=== PATIENT | male | born 1995 | race Caucasian/White ===

== ENCOUNTER 2020-12-29 16:09 | Emergency (ER) | payer OTHER, SELFPAY ==
[2020-12-29 16:22] VITALS: BP 111/79; PULSE 98; RESP 18; TEMP 37.3; O2SAT 96; BMI 36.6
--- NOTE | 2020-12-29 18:39 | ED.GENADULT ---
HPI - General Adult General Chief complaint: General Medical Stated complaint: Multiple Complaints Time Seen by Provider: 12/29/20 18:39 History of Present Illness HPI narrative: Patient with 2 complaints, 1st complaint is cavities that are starting to hurt and he does not have a dental appointment in the near future and is thinking antibiotics might help, denies any difficulty breathing or swallowing or fever Second complaint is a rash on his foreskin that is mildly itchy, denies any discharge no dysuria no pain Related Data Previous Rx's Medication Instructions Recorded penicillin V potassium 500 mg PO QID 7 Days #28 tab 12/29/20 triamcinolone acetonide 1 appl TOPICAL BID PRN #15 g 12/29/20 Allergies Allergy/AdvReac Type Severity Reaction Status Date / Time pollen extracts [POLLEN] Allergy Unknown ITCHY Unverified 07/20/20 19:00 EYES, SNEEZING DUST Allergy Unknown ITCHY Uncoded 07/20/20 19:00 EYES, SNEEZING Review of Systems Review of Systems: Positives are penile rash and dental cavities Negatives are no fever no chills no dizziness no weakness no trouble breathing no trouble swallowing no shortness of breath, no pain, no sore throat, no abdominal pain no nausea no vomiting no testicular pain no discharge no dysuria PMFSH Social History Social History Advance Directives: No Advance Directives Information Provided: Yes Physical Exam Vital Signs: Vital Signs: Last Vital Signs Temp 99.1 F 12/29/20 16:22 Pulse 98 12/29/20 16:22 Resp 18 12/29/20 16:22 BP 111/79 12/29/20 16:22 Pulse Ox 96 12/29/20 16:22 Body Mass Index 36.6 General appearance is no acute distress, comfortable relaxed and cooperative The dental exam there are multiple dental caries, no trismus, uvula is midline, well hydrated, no abscess on the gums no fluctuant area no redness of the gums, voice is normal Neck is supple Abdomen is soft nontender Genital exam there is a scant red rash on the foreskin, no vesicular rash no herpetic lesions no ulcerations no discharge, rash has appearance of a dermatitis Extremities full range of motion x4 Neuro no focal deficits Course Course Course Narrative: Patient is treated for mild dental infection and a dermatitis Discharge Plan Discharge Clinical Impression: Dental caries, Rash, skin Patient Disposition: Home, Self-Care Additional Instructions: Penicillin for possible dental infection, use as directed Use cream as directed for dermatitis Follow with dentist for teeth Return any concerns Prescriptions: New penicillin V potassium 500 mg tablet 500 mg PO QID 7 Days Qty: 28 RF: 0 triamcinolone acetonide 0.1 % cream 1 appl topical BID PRN (Reason: rash) Qty: 15 RF: 0 Interventions: ED Discharge Assessment Last Done: 12/29/20 19:54 Discharge Date/Time: 12/29/20 19:54
== END 2020-12-29 19:54 | disposition home or self-care (01) ==
PROVIDERS: Emergency Provider Emergency Medicine; PCP Pediatrics
DX: K02.9 Dental caries, unspecified (principal); K08.89 Other specified disorders of teeth and supporting structures; R21 Rash and other nonspecific skin eruption
CPT/HCPCS: 99283

== ENCOUNTER 2024-06-17 12:50 | Emergency (ER) | payer OTHER, SELFPAY ==
[2024-06-17 13:19] VITALS: BP 111/74; PULSE 77; RESP 16; TEMP 36.3; O2SAT 97; BMI 31.1
--- NOTE | 2024-06-17 13:19 | ED.GENADULT ---
HPI - General Adult General Chief complaint: General Medical Stated complaint: hemorrhoid Time Seen by Provider: 06/17/24 14:44 Source: patient Mode of arrival: ambulatory Limitations: no limitations History of Present Illness HPI narrative: 28-year-old male with no significant past medical history who presents emergency department with concerns for rectal pain and swelling starting on Friday. He reports he noted a hemorrhoid which isn't increased in size since Friday. He reports he has had significant discomfort with sitting. He denies noting any rectal bleeding or blood after bowel movements. He reports he has been using [id number] hemorrhoid ointment with no relief in symptoms. States he last moved his bowels on Friday and that he typically has difficulty passing stools but denies known constipation. Denies any foreign bodies inserted into the rectum, pain with bowel movements although he states he has not had a bowel movement since prior to Friday, fever, chills, or discharge from the rectum. Pertinent positives and negatives discussed in HPI Related Data Previous Rx's ?Medication ?Instructions ?Recorded penicillin V potassium 500 mg 500 mg PO QID 7 days #28 tabs 12/29/20 tablet triamcinolone acetonide 0.1 % 1 appl topical BID PRN rash #15 12/29/20 topical cream grams dibucaine 1 % rectal ointment 1 appl IN QID PRN hemorrhoids #56 06/17/24 grams psyllium husk 0.52 gram capsule 1.04 g (2 x 0.52 gram) PO DAILY 06/17/24 (Fiber Laxative (psyllium husk)) #10 caps sitz bath #2 ea 06/17/24 Allergies Allergy/AdvReac Type Severity Reaction Status Date / Time pollen extracts [POLLEN] Allergy Unknown ITCHY Verified 06/17/24 13:21 EYES, SNEEZING DUST Allergy Unknown ITCHY Uncoded 07/20/20 19:00 EYES, SNEEZING Review of Systems Review of Systems: Yes all other systems are reviewed and are negative PMFSH Social History Social History Advance Directives: No Advance Directives Information Provided: No Physical Exam ED Vital Signs: Vital Signs - 24 hr 06/17/24 13:19 06/17/24 15:40 Temperature 97.3 F 98.4 F Pulse Rate 77 80 Respiratory Rate 16 18 Blood Pressure 111/74 115/74 Pulse Oximetry 97 96 Oxygen Delivery Method Room Air Room Air BMI result Body Mass Index 31.1 Nursing notes and vital signs reviewed. GENERAL APPEARANCE: A&0 x 4, generally well appearing, no acute distress HENMT: Normal to inspection, atraumatic, face symmetrical. Normal external ears, nose, and oropharynx clear. EYE: PERRLA, EOM intact, structures appear normal NECK: Supple without stiffness or restricted ROM. HEART: Normal rate and regular rhythm, normal S1/S2, no M/R/G LUNGS: LS CTA, moving air well. Able to speak in complete sentences. No crackles, wheezes, or rhonchi auscultated BACK: No CVAT, no obvious deformity EXTREMITIES: Moving all extremities without difficulty. Normal capillary refill. NEUROLOGICAL: Alert and oriented, moving all 4 extremities with equal strength. CN not formally tested but appearing grossly intact. Observed to ambulate with normal gait. Cognition normal SKIN: Warm and dry without any lesions, rash, or visible sores Other: congressional assistant present. 2 cm round external hemorrhoid with no evidence of thrombosis. Course Course Course Narrative: This is a Rapid Medical Examination (RME) performed by Hal Lloyd PA-C in triage. Full HPI, ROS, assessment and treatment plan per primary provider in the Main ED. 28 yo male presenting to the ER for evaluation of large, painful hemorrhoid that is blocking the entrance to his anus and causing significant pain for the last 4 days. No relief with OTC cream. No rectal bleeding. Hx hemorrhoids in the past but not this severe per his report. Plan: examine in [facility] Medical Decision Making Medical Decision Making MDM Narrative: Old records reviewed for previous imaging, lab studies, ECGs, and notes. Patient was assessed the emergency department with no acute distress or toxicity noted. Exam showing external hemorrhoid. Patient educated to begin bulk laxative and increase his fluid intake to allow for more regular bowel movements it appears that he has chronic constipation. Topical lidocaine ointment also sent preferred pharmacy for further management of pain and patient educated that he may continue use of [id number] preparation H. patient educated to complete Sitz baths several times a day to aid in healing. Contact information for colorectal specialist provided for follow-up. Patient is safe for discharge at this time with plan for [id number] Tylenol and/or NSAID such as ibuprofen or naproxen for fever/discomfort with dosing as per packaging. HPI, PE, diagnostics, and plan discussed with patient and family with no unanswered questions at this time. Strict return precautions given to return to the emergency department with new, worsening, or concerning emergent symptoms. Recommended to follow-up with there primary care provider in 24-48 hours for further treatment and management. Differential Diagnosis Differential Diagnoses: The differential diagnosis associated with the presentation includes But not limited to hemorrhoids, fistula, rectal prolapse, pilonidal cyst, anorectal abscess, sepsis, malignancy Prescription Management Antibiotics were considered, however; no evidence of bacterial infection was identified at this time. Narcotic pain medication was considered, however; based on exam, side effects, and high-risk of addiction was deemed necessary at this time. Discharge Plan Discharge Clinical Impression: External hemorrhoid Patient Disposition: Home, Self-Care Instructions: Laxative, Bulk-forming (By mouth), Hemorrhoids (ED), Sitz Bath (DC) Prescriptions: New (DME) sitz bath Kit See Rx Instructions .Route Qty: 2 0RF Rx Instructions: As directed psyllium husk [Fiber Laxative (psyllium husk)] 0.52 gram capsule 1.04 g PO DAILY Qty: 10 0RF dibucaine 1 % ointment 1 appl IN QID PRN (Reason: hemorrhoids) Qty: 56 0RF No Action penicillin V potassium 500 mg tablet 500 mg PO QID 7 Days Qty: 28 0RF triamcinolone acetonide 0.1 % cream 1 appl topical BID PRN (Reason: rash) Qty: 15 0RF Referrals: Beny Gonzalez MD [Physician] - Blake Joy MD [Primary Care Provider] - Stand Alone Forms: Work/School Release Interventions: ED Discharge Assessment Last Done: 06/17/24 15:40 Discharge Date/Time: 06/17/24 15:42 Print Language: Sudanese
[2024-06-17 15:40] VITALS: BP 115/74; PULSE 80; RESP 18; TEMP 36.9; O2SAT 96
== END 2024-06-17 15:42 | disposition home or self-care (01) ==
PROVIDERS: Emergency Provider Emergency Medicine; PCP Pediatrics
DX: K64.4 Residual hemorrhoidal skin tags (principal); K62.89 Other specified diseases of anus and rectum
CPT/HCPCS: 99282; 99283

== ENCOUNTER 2025-01-27 13:22 | Emergency (ER) | payer OTHER, SELFPAY ==
--- NOTE | 2025-01-27 14:06 | ED_ITS ---
HPI - General Adult General Chief complaint: Dental/Oral Stated complaint: dental problem Source: patient, RN notes reviewed and old records reviewed Mode of arrival: ambulatory Limitations: no limitations History of Present Illness ED Provider: Anibal IRAHETA narrative: Patient is a 29-year-old male presenting to the ED with complaint of multiple areas of dental pain. States he does not have an appointment with his dentist for several months. Denies fevers, discharge, drainage. States left lower jaw is the most painful. No difficulty swallowing. MD complaint: dental pain Onset (ago): day(s) Location: mouth Treatments prior to arrival: NSAID Related Data Previous Rx's ?Medication ?Instructions ?Recorded penicillin V potassium 500 mg 500 mg PO QID 7 days #28 tabs 12/29/20 tablet triamcinolone acetonide 0.1 % 1 appl topical BID PRN rash #15 12/29/20 topical cream grams dibucaine 1 % rectal ointment 1 appl [place] QID PRN hemorrhoids #56 06/17/24 grams psyllium husk 0.52 gram capsule 1.04 g (2 x 0.52 gram) PO DAILY 06/17/24 (Fiber Laxative (psyllium husk)) #10 caps sitz bath #2 ea 06/17/24 amoxicillin 875 mg-potassium 1 tab PO BID #14 tabs 01/27/25 clavulanate 125 mg tablet Allergies Allergy/AdvReac Type Severity Reaction Status Date / Time pollen extracts [POLLEN] Allergy Unknown ITCHY Verified 01/27/25 14:09 EYES, SNEEZING DUST Allergy Unknown ITCHY Uncoded 07/20/20 19:00 EYES, SNEEZING Review of Systems 2 Review of Systems: As per HPI Yes all other systems are reviewed and are negative Constitutional: Constitutional: Reports as per HPI Physical Exam ED Vital Signs: Vital signs have been reviewed and appear to be correct. Blood pressure normal. Heart rate slightly tachycardic. Respiratory rate normal. Temperature normal. Oxygen saturation normal. Const General: cooperative, healthy appearing and no acute distress Orientation/consciousness: oriented to person, oriented to place, oriented to time and patient oriented x3 Limitations: no limitations HENMT Head: Yes normocephalic and Yes atraumatic Ears: external ears normal General nose exam: Normal external nose present Face and sinus: Yes face symmetric Mouth: Normal oral and palatal mucosa present, lip normal, tongue normal, oropharynx normal, moist mucous membranes, no audible dysphonia, no drooling and no trismus Teeth and gingiva: dentition normal Teeth image: 2 1. gingival erythema, edema surrounding tooth #17, no fluctuance or drainage Throat: Yes uvula midline and No uvular edema Eyes Pupils: Equal, round and reactive pupils present Neck Neck: Yes normal visual inspection, Yes no lymphadenopathy and Yes supple Resp Effort & Inspection: normal respiratory effort and able to speak in complete sentences Auscultation: clear to auscultation bilaterally Cardio Rate: regular rate Rhythm: regular rhythm Heart sounds: S1 normal heart sound present and S2 normal heart sound present GI Palpation (GI): Soft to palpation and nontender Auscultation: normoactive bowel sounds General: Yes no CVA tenderness Back/Spine/Pelvis Back: no CVA tenderness Skin General skin exam: elasticity normal and turgor normal Neuro General: oriented to person, oriented to place, oriented to time, patient oriented x3, moves all extremities, no focal motor deficits and CN's II-XI intact bilaterally Cranial nerves: Yes Equal, round and reactive pupils present Cognition (Neuro): normal cognition Extrem General: Yes full ROM, Yes no pedal edema and Yes no calf tenderness Psych Mental Status: mental status grossly normal Affect: normal affect Thought process: Normal thought process present Medical Decision Making Medical Decision Making [facility] Narrative: Patient is a 29-year-old male presenting to the ED with complaint of multiple areas of dental pain. On exam patient is awake, A+Ox3, mild tachycardia, VS otherwise WNL, afebrile, normal neurological exam without focal deficits, physical exam findings as above. Given reported symptoms and physical exam findings, initial differential includes but is not limited to toothache, dental infection, dental abscess. Will treat with course of Augmentin. Will provide patient with list of dental clinics to try to get seen sooner. Return precautions discussed. Patient verbalized understanding of and agreement with plan. Differential Diagnosis Differential Diagnoses: The differential diagnosis associated with the presentation includes As per MDM External Record Review External record reviewed: Inpatient record, Office record and Outpatient record Prescription Management I considered prescription management with: Antibiotic Discharge Plan Discharge Clinical Impression: Dental infection Patient Disposition: Home, Self-Care Instructions: Toothache (ED) Additional Instructions: You were evaluated in the emergency department today for complaint of dental pain. You are being treated for a dental infection with antibiotics. Please complete the full course of antibiotics as prescribed even if your symptoms improve. IT IS IMPORTANT THAT YOU FOLLOW UP WITH YOUR DENTIST. We recommend that you take 600 mg of ibuprofen or 650 mg Tylenol every 6 hours as needed for pain. If necessary, you can alternate these medications every 3 hours. For example, at 9:00 a.m. take Tylenol, then at noon take ibuprofen, then at 3:00 p.m. take Tylenol, etc.. Return to the emergency department if you develop worsening pain, swelling, difficulty swallowing, difficulty breathing, fever, or any other concerning symptoms. Call or visit any of the clinics below to establish care with a dentist: [facility] [address] [place] [address] [facility] [place] [address] [facility], [address] [address] [facility] [address] [place] [id number] [facility] [address] [place] [address] [address] [place] [address] Prescriptions: New amoxicillin-pot clavulanate 875-125 mg tablet 1 tab PO BID Qty: 14 0RF No Action penicillin V potassium 500 mg tablet 500 mg PO QID 7 Days Qty: 28 0RF triamcinolone acetonide 0.1 % cream 1 appl topical BID PRN (Reason: rash) Qty: 15 0RF (DME) sitz bath Kit See Rx Instructions .Route Qty: 2 0RF Rx Instructions: As directed psyllium husk [Fiber Laxative (psyllium husk)] 0.52 gram capsule 1.04 g PO DAILY Qty: 10 0RF dibucaine 1 % ointment 1 appl [place] QID PRN (Reason: hemorrhoids) Qty: 56 0RF Print Language: Latvian
[2025-01-27 14:07] VITALS: BP 113/75; PULSE 112; RESP 16; TEMP 36.9; O2SAT 96; BMI 32.9
[2025-01-27 14:14] VITALS: BP 113/75; PULSE 112; RESP 16; TEMP 36.9; O2SAT 96
== END 2025-01-27 14:18 | disposition home or self-care (01) ==
PROVIDERS: Emergency Provider Emergency Medicine; PCP Pediatrics
DX: K04.7 Periapical abscess without sinus (principal); K08.89 Other specified disorders of teeth and supporting structures; R00.0 Tachycardia, unspecified
CPT/HCPCS: 99282; 99283

== ENCOUNTER 2025-04-17 14:03 | Emergency (ER) | payer OTHER, SELFPAY ==
--- NOTE | ~2025-04-17 | XR_ITS ---
CLINICAL HISTORY: cough post viral infection, r o PNA 2 view chest x-ray Comparison: None Findings: No consolidation or effusion. Heart size is normal. No acute fracture. IMPRESSION: 1. No acute findings. This document has been electronically signed by: Kristina Trevino MD on 04/17/2025 15:24:33
[2025-04-17 14:06] VITALS: BP 99/64; PULSE 106; RESP 18; TEMP 36.7; O2SAT 100; BMI 32.3
--- NOTE | 2025-04-17 14:07 | ED.URI ---
HPI - URI/Sore Throat General Chief Complaint: Upper Respiratory Symptoms Stated Complaint: cough Time Seen by Provider: 04/17/25 14:38 Source: patient and RN notes reviewed Mode of arrival: ambulatory Limitations: no limitations History of Present Illness ED Provider: Maya Torres PA-C HPI Narrative: This is a 29-year-old male, with no known medical problems, who presents emergency department with complaints of productive cough for the last 10 days. Patient states that approximately 10 days ago he had subjective fevers, body aches, congestion which have all resolved however states he continues to have a productive cough with green-colored sputum. He states that his mom was sick with similar symptoms. He has been using [id number] cold medications which has not been helping. He denies any new fevers, chills, chest pain, shortness of breath, abdominal pain, nausea, vomiting or diarrhea. No urinary symptoms. No other complaints or concerns at this time. MD elicited complaint: cough Onset (ago): day(s) Consistency: constant Severity: moderate Able to tolerate fluids by mouth: Yes Exacerbating factors: nothing Relieving factors: nothing Context: sick contacts Associated symptoms: denies other symptoms Treatments prior to arrival: none Related Data Previous Rx's ?Medication ?Instructions ?Recorded penicillin V potassium 500 mg 500 mg PO QID 7 days #28 tabs 12/29/20 tablet triamcinolone acetonide 0.1 % 1 appl topical BID PRN rash #15 12/29/20 topical cream grams dibucaine 1 % rectal ointment 1 appl WV QID PRN hemorrhoids #56 06/17/24 grams psyllium husk 0.52 gram capsule 1.04 g (2 x 0.52 gram) PO DAILY 06/17/24 (Fiber Laxative (psyllium husk)) #10 caps sitz bath #2 ea 06/17/24 amoxicillin 875 mg-potassium 1 tab PO BID #14 tabs 01/27/25 clavulanate 125 mg tablet azithromycin 250 mg tablet See Rx Instructions PO .COMPLEX #6 04/17/25 tabs Allergies Allergy/AdvReac Type Severity Reaction Status Date / Time pollen extracts [POLLEN] Allergy Unknown ITCHY Verified 04/17/25 14:07 EYES, SNEEZING DUST Allergy Unknown ITCHY Uncoded 04/17/25 14:07 EYES, SNEEZING Review of Systems Review of Systems: Yes all other systems are reviewed and are negative Constitutional: Constitutional: Reports as per [facility] Past Medical History Attestation statement: The following information was validated with the patient. Social History Social History Unable to assess alcohol history related to: Unknown Smoked in Last 30 Days: No Use of substances other than those prescribed or required for medical reasons: No Advance Directives: No Advance Directives Information Provided: Yes Physical Exam Vital Signs: Vital Signs: Last Vital Signs Temp 98.4 F 04/17/25 16:20 Pulse 89 04/17/25 16:20 Resp 18 04/17/25 16:20 BP 94/54 L 04/17/25 16:20 Pulse Ox 96 04/17/25 16:20 O2 Del Method Room Air 04/17/25 16:20 BMI result Body Mass Index 32.3 Const: General: cooperative, comfortable and no acute distress Orientation/consciousness: patient oriented x3 Limitations: no limitations HEENT: Other: Posterior oropharynx is nonerythematous, nonedematous, tonsils are normal, no exudates. Uvula is midline. No trismus, drooling, or dysphonia. Head: Yes normal to inspection, Yes normocephalic and Yes atraumatic Ears: hearing grossly normal bilaterally and TM's normal bilaterally General nose exam: Normal external nose present Face and sinus: Yes normal facial exam Mouth: Normal oral and palatal mucosa present, oropharynx normal and moist mucous membranes Throat: Yes posterior oropharynx normal Eyes: General: appearance normal, both eyes and all related structures Eyelids: Yes eyelids normal Conjunctivae: conjunctivae normal Sclerae: sclerae normal Pupils: Equal, round and reactive pupils present EOM: EOMs intact bilaterally Neck: Neck: Yes normal visual inspection, Yes full ROM and Yes no lymphadenopathy Lymphatic: no lymphadenopathy noted Chest: Chest palpation & inspection: normal inspection of the chest Resp: Effort & Inspection: normal respiratory effort and able to speak in complete sentences Auscultation: clear to auscultation bilaterally, no crackles, no rales, no rhonchi and no wheezes Cardio: Rate: regular rate Rhythm: regular rhythm Heart sounds: S1 normal heart sound present and S2 normal heart sound present GI: Inspection: Yes normal to inspection Skin: General skin exam: no rashes or lesions noted Trauma: no lacerations or abrasions Wounds: no wounds Neuro: General: patient oriented x3 and moves all extremities Cranial nerves: Yes Equal, round and reactive pupils present Extrem: General: Yes normal to inspection Right upper extremity: normal to inspection Left upper extremity: normal to inspection Right lower extremity: normal to inspection Left lower extremity: normal to inspection Course Course Course Narrative: Hal Mendoza [employer] This is a rapid medical exam. Deferred additional HPI, ROS, PE to primary provider. 29yo male with history of ADHD here with a cough x 10 days. Initially had fever, fatigue, headache (all have resolved). Cough has continued. Will obtain viral testing, CXR VSS Medical Decision Making Medical Decision Making [facility] Narrative: This is a 29-year-old male who presents emergency department with concerns of productive cough for the last 10 days. On arrival, patient is well-appearing, appears to be under no acute distress. Lungs are clear to auscultation bilaterally. Viral swabs were obtained prior to my evaluation which were negative. Chest x-ray was obtained, no evidence of pneumonia. Patient's symptoms likely viral in nature however given that his symptoms have been occurring for the last 10 days, will treat with course of azithromycin. He has no shortness for breath or chest pain. He is a nonsmoker. No alcohol or drug use. Advised to take full course of antibiotics given strict return precautions, patient stable for discharge. Differential Diagnosis Differential Diagnoses: The differential diagnosis associated with the presentation includes Viral illness, viral URI, bronchitis, pneumonia Lab Data [facility] Lab Attestation statement: I reviewed the patient's lab results. Negative viral swabs Labs: Lab Results 04/17/25 Range/Units 14:12 Influenza Type A (PCR) NEGATIVE (Negative) Influenza Type B (PCR) NEGATIVE (Negative) RSV RNA Qual (PCR) NEGATIVE (Negative) SARS-CoV-2 RNA (RT-PCR) NEGATIVE (Negative) Radiology Impression Discussion of test interpretation with radiology: I have reviewed the radiologist's reading. Radiologist Impression: Findings: No consolidation or effusion. Heart size is normal. No acute fracture. IMPRESSION: 1. No acute findings. This document has been electronically signed by: Kristina Trevino MD on 04/17/2025 15:24:33 Dictated By: Kristina Trevino MD Discharge Plan Discharge Clinical Impression: Upper respiratory infection Patient Disposition: Home, Self-Care Instructions: Upper Respiratory Infection (ED) Additional Instructions: You were seen in the emergency department due to a cough. You tested negative for COVID, flu, and RSV, your chest x-ray does not show a pneumonia. Given the duration of your symptoms, we can trial a course of antibiotics. Please take prescribed antibiotic as directed. Finish the entire course even if your symptoms improve. You may alternate between ibuprofen and or Tylenol as needed for pain or symptoms. Drink plenty of fluids and get plenty of rest. If any new or worsening symptoms occur including but not limited to high fevers, severe shortness of breath or chest pain, please seek emergent care. Prescriptions: New azithromycin 250 mg tablet See Rx Instructions .ROUTE .COMPLEX Qty: 6 0RF Rx Instructions: For 250 mg dose pack: take 500 mg today (day 1), then 250 mg for 4 days (days 2-5) No Action penicillin V potassium 500 mg tablet 500 mg PO QID 7 Days Qty: 28 0RF triamcinolone acetonide 0.1 % cream 1 appl topical BID PRN (Reason: rash) Qty: 15 0RF (DME) sitz bath Kit See Rx Instructions .Route Qty: 2 0RF Rx Instructions: As directed psyllium husk [Fiber Laxative (psyllium husk)] 0.52 gram capsule 1.04 g PO DAILY Qty: 10 0RF dibucaine 1 % ointment 1 appl WV QID PRN (Reason: hemorrhoids) Qty: 56 0RF amoxicillin-pot clavulanate 875-125 mg tablet 1 tab PO BID Qty: 14 0RF Interventions: ED Discharge Assessment Last Done: 04/17/25 16:20 Discharge Date/Time: 04/17/25 16:21 Print Language: Malagasy
[2025-04-17 14:52] LABS: Influenza A PCR NEGATIVE (Negative); Influenza B PCR NEGATIVE (Negative); Resp Syncy Virus RNA Qual PCR NEGATIVE (Negative); SARS COV2 PCR INHOUSE NEGATIVE (Negative)
[2025-04-17 15:18] VITALS: BP 94/54; PULSE 89; RESP 18; TEMP 36.9; O2SAT 95; O2SAT 96
--- NOTE | 2025-04-17 15:42 | PC.NURSE ---
Assumed care of this patient at 1500, patient resting quietly on stretcher at this time, awaiting provider, VSS, no needs at this time.
[2025-04-17 16:20] VITALS: BP 94/54; PULSE 89; RESP 18; TEMP 36.9; O2SAT 96
== END 2025-04-17 16:21 | disposition home or self-care (01) ==
PROVIDERS: Nurse Practitioner Family; Emergency Provider Emergency Medicine
DX: J06.9 Acute upper respiratory infection, unspecified (principal); R05.9 Cough, unspecified; Z03.818 Encounter for observation for suspected exposure to other biological agents ruled out
CPT/HCPCS: 0241U; 71046; 99283; 99284

== ENCOUNTER → 2025-04-17 14:08 | Outpatient (BNV) | payer OTHER, SELFPAY | PROVIDERS: Emergency Provider Emergency Medicine; Visit Provider Radiology Diagnostic Radiology | DX: R05.9 Cough, unspecified (principal) | CPT/HCPCS: 71046 ==